=== PATIENT | male | born 1960 | race Caucasian/White ===

== ENCOUNTER 2017-04-26 15:38 | Emergency (ER) | payer SELFPAY ==
[~2017-04-26] VITALS: Ht 180.3 cm; Wt 86.2 kg
[2017-04-26] MEDS ORDERED: Morphine Sulfate 4mg/ml Inj IVP ONE (16:00)
[2017-04-26 16:21] LABS: APPEARANCE,URINE CLEAR; KETONES,URINE NEGATIVE (NEGATIVE); LEUKOCYTE ESTERASE ,URINE 1+ (NEGATIVE); NITRITE,URINE NEGATIVE (NEGATIVE); PH,URINE 5 (4.5-8.0); PROTEIN,URINE NEGATIVE (NEGATIVE); UROBILINOGEN,URINE NORMAL MG/DL (0.0-1.0)
[2017-04-26 16:28] LABS: BASOPHILS % (AUTO) 0.5 % (0.0-2.0); EOSINOPHILS % (AUTO) 1.2 % (0.0-3.0); LYMPHOCYTES % (AUTO) 19.8 % (20.0-45.0); MEAN CORPUSCULAR HEMOGLOBIN 31.8 PG (27.0-31.0); MEAN CORPUSCULAR HGB CONC 35.6 G/DL (32.0-36.0); MEAN CORPUSCULAR VOLUME 89 FL (80-99); MEAN PLATELET VOLUME 5.3 FL (6.5-10.1); MONOCYTES % (AUTO) 12.5 % (1.0-10.0); NEUTROPHILS % (AUTO) 66.1 % (45.0-75.0); PLATELET COUNT 314 K/UL (150-450); RED BLOOD COUNT 5.01 M/UL (4.70-6.10); RED CELL DISTRIBUTION WIDTH 12.6 % (11.6-14.8)
[2017-04-26 16:34] LABS: INR 0.9 (0.9-1.1); PROTHROMBIN TIME 9.7 SEC (9.30-11.50)
[2017-04-26 16:37] LABS: ALANINE AMINOTRANSFERASE 30 U/L (3-41); ALBUMIN/GLOBULIN RATIO 1.8 (1.0-2.7); ANION GAP 13 (5-15); ASPARTATE AMINO TRANSFERASE 25 U/L (5-40); CALCIUM 9.4 mg/dL (8.6-10.2); CARBON DIOXIDE 24 mEQ/L (20-30); CHLORIDE 98 mEQ/L (98-107); CREATININE 1.2 mg/dL (0.7-1.2); GLOMERULAR FILTRATION RATE > 60 mL/min (>60); HEMOLYSIS 11; LIPASE 31 U/L (< 60); POTASSIUM 4.1 mEQ/L (3.4-4.9); SODIUM 135 mEQ/L (135-145); TOTAL PROTEIN 7.5 g/dL (6.6-8.7)
[2017-04-26 16:40] LABS: RBC,URINE 0-2 /HPF (0 - 0)
[2017-04-26 16:41] LABS: WBC,URINE 0-2 /HPF (0 - 0)
[2017-04-26 16:51] LABS: BILIRUBIN,DIRECT 0.3 mg/dL (0.1-0.3)
[2017-04-26] MEDS ORDERED: Ketorolac 30mg Inj IV ONE (17:15)
[2017-04-26] MEDS ORDERED: METRONIDAZOLE500 MG ORAL (18:22)
[2017-04-26] MEDS ORDERED: CIPROFLOXACIN500 M2 ORAL (18:22)
[2017-04-26] MEDS ORDERED: metroNIDAZOLE 500mg tab ORAL ONE (18:30)
[2017-04-26] MEDS ORDERED: Ciprofloxacin 500mg tab ORAL ONE (18:30)
[2017-04-26 18:35] VITALS: BP 111/78
--- NOTE | 2017-04-27 10:37 | Diagnostic Imaging Report ---
Clinical Indication: Abdominal pain Technique: No oral contrast utilized, per emergency room physician request IV administration nonionic contrast. Venous phase spiral acquisition obtained through the abdomen and pelvis. Multiplanar reconstructions were generated. Total dose length product 1229 mGycm. CTDIvol(s) 19 mGy. Dose reduction achieved using automated exposure control Comparison: None Findings: There is colonic diverticulosis. There is infiltration of the perisigmoid fat stranding a particularly prominent diverticulum. There is associated wall thickening of the adjacent sigmoid colon. No extraluminal gas. Occipital fluid collections are demonstrated. The appendix is normal. No small bowel distention. No free or loculated intraperitoneal air or fluid is demonstrated. Distal esophagus, stomach, duodenum are unremarkable. There are fat-containing bilateral inguinal hernias The liver demonstrates diffuse mild hypoattenuation, consistent with fatty change. The gallbladder, bile ducts, pancreas, spleen, adrenals are unremarkable. The kidneys demonstrate bilateral cortical and parapelvic cysts. No hydronephrosis or hydroureter. The bladder is unremarkable. The prostate is slightly prominent. The lungs demonstrate bilateral dependent atelectatic changes. The bones are unremarkable. Impression: Findings compatible with uncomplicated acute sigmoid diverticulosis Mild fatty liver Bilateral renal cortical and parapelvic cysts incidentally noted Bilateral basilar pulmonary dependent atelectatic changes This agrees with the preliminary interpretation provided overnight by [facility] teleradiology service. The CT scanner at [facility] is accredited by the [employer] and the scans are performed using protocols designed to limit radiation exposure to as low as reasonably achievable to attain images of sufficient resolution adequate for diagnostic evaluation.
--- NOTE | 2017-04-27 12:26 | Emergency Room Report ---
History of Present Illness General Chief Complaint: Abdominal Pain Source: Patient Present Illness HPI Patient is a 56-year-old male presenting for abdominal pain. He states that pain began 2 days prior and is described as an intermittent 8/10 sharp sensation to the mid lower abdomen. Pain does not radiate. He states that he had kidney stones 20 years prior and this feels the same. he does admit to diarrhea for the past 2 days. He denies other symptoms including N, V, F, chills, dysuria, hematuria, back pain, constipation. Allergies: Coded Allergies: No Known Allergies (Unverified , 04/26/17) Patient History Past Medical History: see triage record Pertinent Family History: none Reviewed Nursing Documentation: PMH: Agreed, PSxH: Agreed Nursing Documentation-PMH Past Medical History: No History, Except For Hx Cardiac Problems: No - KINDEY STONE Review of Systems All Other Systems: negative except mentioned in HPI Physical Exam Vital Signs Date Time Temp Pulse Resp B/P Pulse Ox O2 Delivery O2 Flow Rate FiO2 04/26/17 15:48 98.4 92 20 122/80 100 Room Air Sp02 EP Interpretation: reviewed, normal General Appearance: no apparent distress, alert, GCS 15, non-toxic Head: normocephalic, atraumatic Eyes: bilateral eye PERRL, bilateral eye normal inspection ENT: hearing grossly normal, normal pharynx, no angioedema, normal voice Neck: full range of motion, supple/symm/no masses Gastrointestinal: normal bowel sounds, non tender, soft, non-distended, no guarding, no rebound Genitourinary: normal inspection, no CVA tenderness Musculoskeletal: back normal, gait/station normal, normal range of motion, non- tender Neurologic: alert, oriented x3, responsive, motor strength/tone normal, sensory intact, speech normal Psychiatric: judgement/insight normal, memory normal, mood/affect normal, no suicidal/homicidal ideation Skin: normal color, no rash, warm/dry, well hydrated Medical Decision Making PA Attestation Dr. Alcantara is my supervising physician. Patient management was discussed with my supervising physician Diagnostic Impression: Primary Impression: Diverticulitis Qualified Codes: K57.32 - Diverticulitis of large intestine without perforation or abscess without bleeding ER Course Patient is a 56-year-old male presenting for abdominal pain. Differential diagnoses considered include but not limited to gastritis, pyelonephritis, diverticulitis, pancreatitis, appendicitis, UTI PE: Vitals WNL. NAD. Abdomen: Normal appearance. Non distended. No ecchymosis. Normal BS. Non TTP. No McBurney point tenderness. No guarding. No CVA tenderness Pt is given IV fluids, morphine and toradol and pain has decreased. CT: Findings compatible with uncomplicated acute sigmoid diverticulosis Bilateral renal cortical and parapelvic cysts incidentally noted Bilateral basilar pulmonary dependent atelectatic changes He is given these results and will be started on cipro and flagyl. ER precautions given Laboratory Tests Test 04/26/17 15:53 04/26/17 16:00 Urine Color Pale yellow Urine Appearance Clear Urine pH 5 (4.5-8.0) Urine Specific [place] 1.010 (1.005-1.035) Urine Protein Negative (NEGATIVE) Urine Glucose (UA) Negative (NEGATIVE) Urine Ketones Negative (NEGATIVE) Urine Occult Blood 2+ (NEGATIVE) H Urine Nitrite Negative (NEGATIVE) Urine Bilirubin Negative (NEGATIVE) Urine Urobilinogen Normal MG/DL (0.0-1.0) Urine Leukocyte Esterase 1+ (NEGATIVE) H Urine RBC 0-2 /HPF (0 - 0) H Urine WBC 0-2 /HPF (0 - 0) Urine Squamous Epithelial Cells None /LPF (NONE/OCC) Urine Bacteria None /HPF (NONE) White Blood Count 15.0 K/UL (4.8-10.8) H Red Blood Count 5.01 M/UL (4.70-6.10) Hemoglobin 15.9 G/DL (14.2-18.0) Hematocrit 44.8 % (42.0-52.0) Mean Corpuscular Volume 89 FL (80-99) Mean Corpuscular Hemoglobin 31.8 PG (27.0-31.0) H Mean Corpuscular Hemoglobin Concent 35.6 G/DL (32.0-36.0) Red Cell Distribution Width 12.6 % (11.6-14.8) Platelet Count 314 K/UL (150-450) Mean Platelet Volume 5.3 FL (6.5-10.1) L Neutrophils (%) (Auto) 66.1 % (45.0-75.0) Lymphocytes (%) (Auto) 19.8 % (20.0-45.0) L Monocytes (%) (Auto) 12.5 % (1.0-10.0) H Eosinophils (%) (Auto) 1.2 % (0.0-3.0) Basophils (%) (Auto) 0.5 % (0.0-2.0) Prothrombin Time 9.7 SEC (9.30-11.50) Prothrombin Time INR 0.9 (0.9-1.1) PTT 26 SEC (23-33) Sodium Level 135 mEQ/L (135-145) Potassium Level 4.1 mEQ/L (3.4-4.9) Chloride Level 98 mEQ/L (98-107) Carbon Dioxide Level 24 mEQ/L (20-30) Anion Gap 13 (5-15) Blood Urea Nitrogen 17 mg/dL (7-23) Creatinine 1.2 mg/dL (0.7-1.2) Estimate Glomerular Filtration Rate > 60 mL/min (>60) Glucose Level 126 mg/dL (74-106) H Calcium Level 9.4 mg/dL (8.6-10.2) Total Bilirubin 2.3 mg/dL (0.0-1.2) H Direct Bilirubin 0.3 mg/dL (0.1-0.3) Aspartate Amino Transferase (AST) 25 U/L (5-40) Alanine Aminotransferase (ALT) 30 U/L (3-41) Alkaline Phosphatase 82 U/L (40-129) Total Protein 7.5 g/dL (6.6-8.7) Albumin 4.9 g/dL (3.5-5.2) Globulin 2.6 g/dL Albumin/Globulin Ratio 1.8 (1.0-2.7) Lipase 31 U/L (< 60) Lab Results Impression CBC shows leukocytosis. Otherwise unremarkable CT/MRI/US Diagnostic Results CT/MRI/US Diagnostic Results : Imaging Test Ordered: CT abd/pelvis Impression Findings compatible with uncomplicated acute sigmoid diverticulosis Mild fatty liver Bilateral renal cortical and parapelvic cysts incidentally noted Bilateral basilar pulmonary dependent atelectatic changes Last Vital Signs Date Time Temp Pulse Resp B/P Pulse Ox O2 Delivery O2 Flow Rate FiO2 04/26/17 18:35 88 17 111/78 99 Room Air 04/26/17 15:48 98.4 Status: improved Disposition: HOME, SELF-CARE Condition: Improved Scripts Ciprofloxacin Hcl* (CIPROFLOXACIN HCL*) 500 Mg Tablet 500 MG ORAL EVERY 12 HOURS, #14 TAB 0 Refills Prov: BRIANNA RANDALL 04/26/17 Metronidazole* (FLAGYL*) 500 Mg Tablet 500 MG ORAL BID, #14 TAB 0 Refills Prov: BRIANNA RANDALL 04/26/17 Patient Instructions: Diverticulitis, Abdominal Pain, Adult Additional Instructions: I discussed my findings with the patient. All questions and concerns have been answered. Treatment and medication compliance have been addressed. I advised the patient that they need to follow up with PMD in 3-5 days. Return to ED if symptoms worsen, new symptoms arise, or if needed for any reason. Patient verbalized understanding of discharge instructions. BRIANNA RANDALL Apr 27, 2017 12:26
[2017-04-27] MEDS ORDERED: PREDNISONE20 MG ORAL (20:20)
[2017-04-27] MEDS ORDERED: BENADRYL25 MG ORAL (20:20)
[2017-04-27] MEDS ORDERED: KEFLEX500 MG ORAL (20:22)
== END 2017-04-26 18:37 | disposition home or self-care (01) ==
LOC: EMR 16:43
DX: K57.32 Diverticulitis of large intestine without perforation or abscess without bleeding (principal); K76.0 Fatty (change of) liver, not elsewhere classified; N28.1 Cyst of kidney, acquired
CPT/HCPCS: 36415; 74177; 80053; 81003; 82248; 83690; 85025; 85610; 85730; 96360; 96361; 96374; 96375; 99284; J1885; J2270; J2405; Q9967

== ENCOUNTER 2017-04-27 19:36 | Emergency (ER) | payer SELFPAY ==
[~2017-04-27] VITALS: Ht 177.8 cm; Wt 89.8 kg
[~2017-04-27 19:36] MED LIST: CIPROFLOXACIN500 M2 ORAL; METRONIDAZOLE500 MG ORAL
[2017-04-27 20:11] VITALS: BP 111/70
[2017-04-27] MEDS ORDERED: PREDNISONE20 MG ORAL (20:20)
[2017-04-27] MEDS ORDERED: BENADRYL25 MG ORAL (20:20)
[2017-04-27] MEDS ORDERED: KEFLEX500 MG ORAL (20:22)
[2017-04-27 20:35] VITALS: BP 111/70
--- NOTE | 2017-04-28 21:00 | Emergency Room Report ---
History of Present Illness General Chief Complaint: Allergic Reaction Source: Patient Present Illness HPI Patient is a 56-year-old male brought in by self after increased rash to his hands. Patient reports having increased rash to his hands. Patient was noted to recently been prescribed ciprofloxacin and Flagyl for presumed diverticulitis. Patient reported having improvement in the abdominal symptoms. The patient stated he took only one day the medication and began having rash after taking both of medications. He denied any fever. He denied any difficulty breathing. Allergies: Coded Allergies: No Known Allergies (Unverified , 04/26/17) Patient History Past Medical History: see triage record Reviewed Nursing Documentation: PMH: Agreed, PSxH: Agreed Nursing Documentation-PMH Hx Cardiac Problems: Cintia - PATITO LAURA Review of Systems All Other Systems: negative except mentioned in HPI Physical Exam Vital Signs Date Time Temp Pulse Resp B/P Pulse Ox O2 Delivery O2 Flow Rate FiO2 04/27/17 20:04 97.9 66 18 111/70 96 General Appearance: well appearing, no apparent distress, alert, GCS 15 Head: normocephalic, atraumatic ENT: hearing grossly normal, normal voice Neck: full range of motion, supple Respiratory: no respiratory distress, speaking full sentences Musculoskeletal: normal inspection, no calf tenderness Neurologic: normal inspection, alert, oriented x3, normal gait Psychiatric: mood/affect normal Skin: other - slight erythema and swelling Medical Decision Making Diagnostic Impression: Primary Impression: Allergic reaction ER Course Patient presented for skin rash. Patient's benign exam and does not appear to require any further imaging or laboratory testing at this time. Patient noted have what appears to be allergic reaction. Patient is advised to discontinue Cipro as well as Flagyl. He is unclear if he had allergic reaction to either one of these however given the patient's new onset of rash a little changes antibiotics. He was given prescription for oral steroids as well as Keflex . The patient was much return if he began having increased rash difficulty breathing or other concerns Last Vital Signs Date Time Temp Pulse Resp B/P Pulse Ox O2 Delivery O2 Flow Rate FiO2 04/27/17 20:35 97.9 60 18 111/70 96 Status: improved Disposition: HOME, SELF-CARE Condition: Stable Scripts Cephalexin* (KEFLEX*) 500 Mg Capsule 500 MG ORAL Q6H, #28 CAP 0 Refills Prov: Yousif Kim 04/27/17 Diphenhydramine Hcl* (BENADRYL*) 25 Mg Capsule 25 MG ORAL Q6H Y for Itching, #30 CAP Prov: Yousif Kim 04/27/17 Prednisone* (PREDNISONE*) 20 Mg Tablet 60 MG ORAL DAILY, #15 TAB Prov: Yousif Kim 04/27/17 Referrals: NOT CHOSEN IPA/,REFERRING (PCP) Patient Instructions: Drug Allergy Yousif Kim Apr 28, 2017 21:00
== END 2017-04-27 20:35 | disposition home or self-care (01) ==
LOC: EMR 20:12
DX: T78.40XA Allergy, unspecified, initial encounter (principal); X58.XXXA Exposure to other specified factors, initial encounter; R21 Rash and other nonspecific skin eruption
CPT/HCPCS: 99284